=== PATIENT | female | born 1940 | race Two or more races ===

== ENCOUNTER → 2020-03-26 | Outpatient (CLI) | payer OTHER ==
--- NOTE | 2020-03-26 11:31 | RAD ---
3 views of the sacrum and coccyx without comparison for osteoporosis, ongoing sacral pain. FINDINGS: There is no definite fracture or acute osseous abnormality identified. There is grade 1 anterolisthesis of L5 on S1. Extensive aortoiliac atherosclerosis is noted. 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 IMPRESSION: 1. No definite fracture or acute osseous abnormality identified. If there is strong clinical concern for an osteoporotic insufficiency fracture of the sacrum, consider further evaluation with nuclear medicine bone scan or MRI of the pelvis. Electronically signed by: Delano Caro MD (03/26/2020 11:28 AM) [id number]
== END | disposition home or self-care (01) ==
LOC: RAD 09:12
PROVIDERS: ATTEND Family Medicine
DX: M43.17 Spondylolisthesis, lumbosacral region (principal); I70.0 Atherosclerosis of aorta; M12.88 Other specific arthropathies, not elsewhere classified, other specified site; M81.0 Age-related osteoporosis without current pathological fracture; M53.3 Sacrococcygeal disorders, not elsewhere classified; M79.605 Pain in left leg
CPT/HCPCS: 72220

== ENCOUNTER → 2021-02-01 | Outpatient (CLI) | payer OTHER ==
--- NOTE | 2021-02-01 15:08 | RAD ---
CT THORAX WO History: Cutaneous systemic sclerosis. Comparison: None. Technique: Noncontrast CT of the chest. Findings: Assessment is limited by lack of IV contrast. Aorta and Great Vessels: No aneurysm of the aortic arch or thoracic aorta is seen. Mild atherosclerot ic calcification. Thyroid: Enlarged right thyroid lobe with suggestion of 1.4 cm nodule. Mediastinum and zuleyma: No mediastinal masses or adenopathy is seen. Esophagus: Small hiatal hernia with fluid level in the midthoracic esophagus. Heart: The heart is normal in size. There is no pericardial effusion. Heavy coronary artery calcifica tion. Trachea: The visualized tracheobronchial tree is normal. Lungs: The lungs are clear. No airspace consolidation. No significant pulmonary fibrosis. Pleural Space: There is no pneumothorax or pleural effusion. Upper Abdomen: Small irregular contour liver with moderate perihepatic ascites. Osseous Structures and Soft Tissues: Partially healed midsternal fracture. Impression fracture of the T2 vertebral body. Impression: 1. Small nodular liver with moderate perihepatic ascites concerning for cirrhosis. 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 2. Small hiatal hernia and fluid levels in the esophagus. 3. Likely chronic healed transverse fracture of the sternum and compression fracture of the T2 verte bral body. 4. No evidence of significant pulmonary fibrosis. No airspace consolidation. ------ Exposure: One or more of the following individualized dose reduction techniques were utilized for thi s examination: 1. Automated exposure control 2. Adjustment of the mA and/or kV according to patient size 3. Use of iterative reconstruction technique. Electronically signed by: Pastor Platt MD (02/01/2021 3:05 PM) [facility]
== END ==
LOC: CT 09:23
PROVIDERS: ATTEND Family Medicine
DX: L94.9 Localized connective tissue disorder, unspecified (principal); K44.9 Diaphragmatic hernia without obstruction or gangrene
CPT/HCPCS: 71250